=== PATIENT | female | born 1945 | race Caucasian/White ===

== ENCOUNTER → 2017-05-20 | Outpatient (CLI) | payer OTHER, MEDICARE | LOC: BHLMT 09:15 | PROVIDERS: ATTEND Internal Medicine Cardiovascular Disease | DX: I48.91 Unspecified atrial fibrillation (principal) | CPT/HCPCS: 93306-PO ==

== ENCOUNTER 2018-05-18 07:32 | Day surgery (SDC) | payer OTHER, MEDICARE ==
[2018-05-18] MEDS ORDERED: ceFAZolin 2 GM/DEXTROSE 100 ML IV ONE (07:34)
[2018-05-18] MEDS ORDERED: BACITRACIN IRRIGATION/NS 50,000 UNITS/1,000 ML BTL IRR ONE (07:34)
[2018-05-18] MEDS ORDERED: DIAZEPAM 5 MG TAB PO ONE (07:34)
[2018-05-18] MEDS ORDERED: diphenhydrAMINE 25 MG CAP PO ONE (07:34)
[2018-05-18] MEDS ORDERED: NS 1,000 ML IV ONE (07:34)
[2018-05-18 08:17] LABS: PLATELET COUNT 274 10^3/uL (150-400)
[2018-05-18 08:25] LABS: INR 1.1 (0.83-1.16); PROTIME(PATIENT) 14.4 SEC (12.0-15.0)
[2018-05-18] MEDS ORDERED: fentaNYL 100 MCG/2 ML INJ ONE ×2 (08:26→10:27)
[2018-05-18] MEDS ORDERED: LIDOCAINE 1% 300 MG/30 ML SDV ONE (08:26)
[2018-05-18] MEDS ORDERED: LIDO/EPI 1% **for epidural** 30 ML SDV ONE (08:27)
[2018-05-18] MEDS ORDERED: MIDAZOLAM 2 MG/2 ML VIAL ONE ×3 (08:27→11:04)
[2018-05-18] MEDS ORDERED: BUPIVACAINE 0.5% 30 ML SDV ONE (08:27)
--- NOTE | 2018-05-18 10:59 | PDPROPOC ---
Sedation Plan of Care Sedation Plan of Care: vital signs stable, mental status noted, patient educated of risks, benefits, alternatives, patient can tolerate sedation ASA Classification: ASA 2 Planned drugs: fentanyl, midazolam Mallampati Score: Class 2 Mallampati Reference Image: Patient passed 3-3-2 rule?: Yes
--- NOTE | 2018-05-18 10:59 | PDHPUP ---
History & Physical Update H&P update statement: This history and physical update is based on an assessment of the patient which was completed after admission or registration (within 24 hours), but prior to the surgery/procedure. H&P update: H&P reviewed & patient examined, no change in patient's condition since H&P completed
--- NOTE | 2018-05-18 12:17 | CPIP ---
DATE OF PROCEDURE: 05/18/2018 INDICATIONS: The patient is 72 years old. She has a history of nonischemic dilated cardiomyopathy. Her previous device was implanted in 2009 and is currently at elective replacement indicators. PROCEDURE: Implantable cardioverter defibrillator generator change. TECHNIQUE: Following informed consent, in the fasting state, the patient was brought to the cardiac catheterization laboratory. Prophylactic antibiotics were administered prior to the procedure. The left chest was prepped and draped in usual sterile fashion. 2% lidocaine was infiltrated into the sk in along the scar. A 4 cm incision was made along the scar. Using blunt and sharp dissection, the I CD capsule was opened and the device was delivered from the field. The existing lead was then freed from the surrounding scar tissue. The device was disconnected from the lead. The pocket was then ir rigated. The new device was brought to the field and the lead affixed to the header according to [facility] sa[facility] guidelines. The device and the redundant portion of the lead were then placed back in the pocket. The pocket was then closed in 3 layers initially with 2 layers of interrupted suture using 2 -0 and 3-0 Vicryl and finally running Stratafix for the skin. Steri-Strips and a dry dressing were a pplied. COMPLICATIONS: None. DEVICE INFORMATION: The newly placed device is a [employer] Ilivia 7 VR-T. reference number [id number], s erial number [id number]. The existing lead was implanted March 26, 2010 and is a [employer] Linox ST 65 cm lead, model number [id number], serial number [id number]. Sensed R-waves were 17.3 mV with a lead im pedance of 452 ohms and a threshold of 0.6 V at 0.5 msec. COMPLICATIONS: None. DISPOSITION: Patient was recovered in the CVC. She will be discharged home later today. /[id number]/MODL
--- NOTE | 2018-05-19 14:30 | CPEKG ---
Test Reason : OPEN Blood Pressure : / mmHG Vent. Rate : 080 BPM Atrial Rate : 000 BPM P-R Int : 154 ms QRS Dur : 105 ms QT Int : 423 ms P-R-T Axes : 000 068 142 degrees QTc Int : 488 ms Atrial fibrillation Nonspecific repol abnormality, lateral leads Confirmed by Gael Petersen ([id number]) on 05/19/2018 2:30:15 PM Referred By: Confirmed By:Gael Petersen
--- NOTE | 2018-05-19 14:34 | CPEKG ---
Test Reason : OPEN Blood Pressure : / mmHG Vent. Rate : 057 BPM Atrial Rate : 000 BPM P-R Int : 180 ms QRS Dur : 106 ms QT Int : 453 ms P-R-T Axes : 000 043 154 degrees QTc Int : 441 ms Atrial fibrillation Nonspecific repol abnormality, lateral leads Confirmed by Gael Petersen ([id number]) on 05/19/2018 2:34:37 PM Referred By: Confirmed By:Gael Petersen
== END 2018-05-18 15:30 | disposition home or self-care (01) ==
LOC: FCATH 07:32
PROVIDERS: ATTEND Internal Medicine Cardiovascular Disease
DX: Z45.02 Encounter for adjustment and management of automatic implantable cardiac defibrillator (principal); I42.0 Dilated cardiomyopathy; I48.2 Chronic atrial fibrillation; I10 Essential (primary) hypertension; E78.5 Hyperlipidemia, unspecified; E11.9 Type 2 diabetes mellitus without complications
CPT/HCPCS: C1722; J0690; J2250; J3010

== ENCOUNTER → 2018-05-19 | Outpatient (CLI) | payer OTHER, MEDICARE | LOC: BHLMT 15:30 | PROVIDERS: ATTEND Internal Medicine Cardiovascular Disease | DX: I42.9 Cardiomyopathy, unspecified (principal) | CPT/HCPCS: 93306-PO ==

== ENCOUNTER → 2018-06-14 | Outpatient (CLI) | payer OTHER, MEDICARE ==
[~2018-06-14] MED LIST: IOHEXOL 300 mgI/ML (OMNIPAQUE) 150 ML BTL IV ONE
== END ==
LOC: FIMAGING 14:52
PROVIDERS: ATTEND Internal Medicine Pulmonary Disease
DX: R91.1 Solitary pulmonary nodule (principal); N28.89 Other specified disorders of kidney and ureter; I28.8 Other diseases of pulmonary vessels; I51.7 Cardiomegaly
CPT/HCPCS: 71260; Q9967; 82565-PO